=== PATIENT | male | born 1955 | race Caucasian/White ===

== ENCOUNTER 2017-04-15 07:31 | Emergency (ER) | payer OTHER ==
[~2017-04-15] VITALS: Ht 170.2 cm; Wt 59.0 kg
[~2017-04-15 07:31] MED LIST: AMOX1TAB12 PO; COZAAR50 MG; DICLOFENAC SODI50 MG PO; LIPITOR20 MG; MUPIROCIN15 GM TOP; ORPH100T PO; [UNRECOGNIZED DRUG - OTHER]; [UNRECOGNIZED DRUG - OTHER]
== END 2017-04-15 08:42 | disposition home or self-care (01) ==
LOC: ER 07:31
DX: Z48.02 Encounter for removal of sutures (principal)

== ENCOUNTER 2017-05-16 07:14 | Outpatient (CLI) | payer OTHER | END 2017-05-16 07:18 | disposition home or self-care (01) | LOC: LAB 07:14 | DX: D49.2 Neoplasm of unspecified behavior of bone, soft tissue, and skin (principal) ==

== ENCOUNTER 2017-05-16 07:49 | Outpatient (CLI) | payer OTHER | END 2017-05-16 07:52 | disposition home or self-care (01) | LOC: RAD 07:49 | DX: M19.071 Primary osteoarthritis, right ankle and foot (principal); M19.072 Primary osteoarthritis, left ankle and foot ==

== ENCOUNTER → 2017-05-29 07:55 | Outpatient (CLI) | payer OTHER | END | disposition home or self-care (01) | LOC: LAB 07:55 | DX: B20 Human immunodeficiency virus [HIV] disease (principal) ==

== ENCOUNTER 2017-12-05 06:53 | Outpatient (CLI) | payer OTHER | END 2017-12-05 07:09 | disposition home or self-care (01) | LOC: LAB 06:53 | DX: B20 Human immunodeficiency virus [HIV] disease (principal); Z12.5 Encounter for screening for malignant neoplasm of prostate; R31.29 Other microscopic hematuria ==

== ENCOUNTER 2017-12-29 19:37 | Emergency (ER) | payer OTHER ==
[~2017-12-29] VITALS: Ht 170.2 cm; Wt 59.0 kg
[2017-12-29] MEDS ORDERED: ASPIR-TRIN325 MG (19:43)
== END 2017-12-29 22:29 | disposition designated cancer center or children's hospital (05) ==
LOC: ER 19:37
DX: S52.591A Other fractures of lower end of right radius, initial encounter for closed fracture (principal); V49.9XXA Car occupant (driver) (passenger) injured in unspecified traffic accident, initial encounter; Y93.89 Activity, other specified; Y92.488 Other paved roadways as the place of occurrence of the external cause; Y99.8 Other external cause status

== ENCOUNTER 2018-01-12 07:25 | Outpatient (CLI) | payer OTHER ==
[~2018-01-12 07:25] MED LIST changes: +ASPIR-TRIN325 MG
== END 2018-01-12 07:35 | disposition home or self-care (01) ==
LOC: LAB 07:25
DX: B20 Human immunodeficiency virus [HIV] disease (principal); E78.4 Other hyperlipidemia

== ENCOUNTER → 2018-01-19 07:06 | Outpatient (CLI) | payer OTHER | END | disposition home or self-care (01) | LOC: LAB 07:06 | DX: R97.20 Elevated prostate specific antigen [PSA] (principal); N40.1 Benign prostatic hyperplasia with lower urinary tract symptoms ==

== ENCOUNTER 2018-05-14 07:36 | Outpatient (CLI) | payer OTHER | END 2018-05-14 07:40 | disposition home or self-care (01) | LOC: LAB 07:36 | DX: Z00.00 Encounter for general adult medical examination without abnormal findings (principal) ==

== ENCOUNTER 2018-11-12 07:19 | Outpatient (CLI) | payer OTHER | END 2018-11-12 07:29 | disposition home or self-care (01) | LOC: LAB 07:19 | DX: B20 Human immunodeficiency virus [HIV] disease (principal); E78.49 Other hyperlipidemia; Z11.4 Encounter for screening for human immunodeficiency virus [HIV] ==

== ENCOUNTER 2019-01-15 07:06 | Outpatient (CLI) | payer OTHER | END 2019-01-15 07:18 | disposition home or self-care (01) | LOC: LAB 07:06 | DX: B20 Human immunodeficiency virus [HIV] disease (principal) ==

== ENCOUNTER 2019-05-02 06:48 | Outpatient (CLI) | payer OTHER | END 2019-05-02 06:55 | disposition home or self-care (01) | LOC: LAB 06:48 | DX: R97.20 Elevated prostate specific antigen [PSA] (principal); N40.1 Benign prostatic hyperplasia with lower urinary tract symptoms ==

== ENCOUNTER → 2019-05-13 06:57 | Outpatient (CLI) | payer OTHER | END | disposition home or self-care (01) | LOC: LAB 06:57 | DX: Z00.00 Encounter for general adult medical examination without abnormal findings (principal) ==

== ENCOUNTER 2019-08-03 08:06 | Outpatient (CLI) | payer OTHER | END 2019-08-03 08:13 | disposition home or self-care (01) | LOC: LAB 08:06 | DX: R97.20 Elevated prostate specific antigen [PSA] (principal) ==

== ENCOUNTER 2020-09-07 07:43 | Outpatient (CLI) | payer OTHER | END 2020-09-07 07:46 | disposition home or self-care (01) | LOC: SONOGRAMA 07:43 → MAMO-SONO 08:00 | PROVIDERS: ATTEND Internal Medicine Infectious Disease | DX: K76.0 Fatty (change of) liver, not elsewhere classified (principal) ==

== ENCOUNTER → 2020-12-22 08:40 | Outpatient (CLI) | payer OTHER | END | disposition home or self-care (01) | LOC: LAB 08:40 | PROVIDERS: ATTEND Urology | DX: N40.1 Benign prostatic hyperplasia with lower urinary tract symptoms (principal); R97.20 Elevated prostate specific antigen [PSA]; N39.0 Urinary tract infection, site not specified; D51.0 Vitamin B12 deficiency anemia due to intrinsic factor deficiency; I25.10 Atherosclerotic heart disease of native coronary artery without angina pectoris; R78.89 Finding of other specified substances, not normally found in blood ==

== ENCOUNTER → 2021-01-26 07:30 | Outpatient (CLI) | payer OTHER | END | disposition home or self-care (01) | LOC: LAB 07:30 | PROVIDERS: ATTEND Internal Medicine Infectious Disease | DX: C08.9 Malignant neoplasm of major salivary gland, unspecified (principal); C04.9 Malignant neoplasm of floor of mouth, unspecified ==

== ENCOUNTER 2021-05-15 08:31 | Outpatient (CLI) | payer OTHER | END 2021-05-15 08:35 | disposition home or self-care (01) | LOC: RAD 08:31 | PROVIDERS: ATTEND Urology | DX: I10 Essential (primary) hypertension (principal); Z01.811 Encounter for preprocedural respiratory examination ==

== ENCOUNTER 2021-05-18 07:42 | Outpatient (CLI) | payer OTHER | END 2021-05-18 07:51 | disposition home or self-care (01) | LOC: LAB 07:42 | PROVIDERS: ATTEND Urology | DX: C61 Malignant neoplasm of prostate (principal); Z01.818 Encounter for other preprocedural examination; R97.20 Elevated prostate specific antigen [PSA]; D51.0 Vitamin B12 deficiency anemia due to intrinsic factor deficiency; E78.9 Disorder of lipoprotein metabolism, unspecified ==

== ENCOUNTER 2021-07-05 13:25 | Outpatient (CLI) | payer OTHER | END 2021-07-05 13:26 | disposition home or self-care (01) | LOC: LAB 13:25 | PROVIDERS: ATTEND Specialist | DX: L02.416 Cutaneous abscess of left lower limb (principal) ==

== ENCOUNTER 2021-07-20 07:00 | Outpatient (CLI) | payer OTHER | END 2021-07-20 07:08 | disposition home or self-care (01) | LOC: LAB 07:00 | DX: B20 Human immunodeficiency virus [HIV] disease (principal) ==

== ENCOUNTER 2021-07-22 07:31 | Outpatient (CLI) | payer OTHER | END 2021-07-22 07:43 | disposition home or self-care (01) | LOC: LAB 07:31 | DX: E11.9 Type 2 diabetes mellitus without complications (principal); E78.5 Hyperlipidemia, unspecified ==

== ENCOUNTER 2021-08-04 08:03 | Outpatient (CLI) | payer OTHER | END 2021-08-04 08:04 | disposition home or self-care (01) | LOC: LAB 08:03 | PROVIDERS: ATTEND Internal Medicine Infectious Disease | DX: C61 Malignant neoplasm of prostate (principal) ==

== ENCOUNTER 2021-08-09 07:42 | Emergency (ER) | payer OTHER ==
[~2021-08-09] VITALS: Ht 170.2 cm; Wt 58.5 kg
== END 2021-08-09 09:22 | disposition home or self-care (01) ==
LOC: ER 07:42
DX: T24.10 Burn of first degree of unspecified site of lower limb, except ankle and foot (principal); X08.8XXS Exposure to other specified smoke, fire and flames, sequela

== ENCOUNTER 2021-08-09 10:26 | Outpatient (CLI) | payer OTHER | END 2021-08-09 11:00 | disposition home or self-care (01) | LOC: WOUND CARE 10:26 → WOUND MED 10:26 → WOUND CARE 11:30 | PROVIDERS: ATTEND Specialist | DX: T24.001D Burn of unspecified degree of unspecified site of right lower limb, except ankle and foot, subsequent encounter (principal) | CPT/HCPCS: 11042; A4930; A6219; A6223; A6251 ==

== ENCOUNTER 2021-10-12 07:05 | Outpatient (CLI) | payer OTHER | END 2021-10-12 07:12 | disposition home or self-care (01) | LOC: LAB 07:05 | PROVIDERS: ATTEND Urology | DX: R97.20 Elevated prostate specific antigen [PSA] (principal) ==

== ENCOUNTER 2021-10-19 07:25 | Outpatient (CLI) | payer OTHER | END 2021-10-19 07:40 | disposition home or self-care (01) | LOC: LAB 07:25 | DX: Z00.00 Encounter for general adult medical examination without abnormal findings (principal); Z21 Asymptomatic human immunodeficiency virus [HIV] infection status; I10 Essential (primary) hypertension; E78.5 Hyperlipidemia, unspecified; E03.8 Other specified hypothyroidism; N40.0 Benign prostatic hyperplasia without lower urinary tract symptoms; E11.65 Type 2 diabetes mellitus with hyperglycemia; E55.9 Vitamin D deficiency, unspecified ==

== ENCOUNTER → 2021-10-29 | Outpatient (CLI) | payer OTHER | END | disposition home or self-care (01) | LOC: SONOGRAMA 07:15 | PROVIDERS: ATTEND Urology | DX: R97.20 Elevated prostate specific antigen [PSA] (principal) ==

== ENCOUNTER → 2022-01-17 06:44 | Outpatient (CLI) | payer OTHER | END | disposition home or self-care (01) | LOC: LAB 06:44 | PROVIDERS: ATTEND Internal Medicine Infectious Disease | DX: E11.9 Type 2 diabetes mellitus without complications (principal); I10 Essential (primary) hypertension; E78.5 Hyperlipidemia, unspecified; D64.9 Anemia, unspecified ==

== ENCOUNTER 2022-07-12 06:57 | Outpatient (CLI) | payer OTHER | END 2022-07-12 07:02 | disposition home or self-care (01) | LOC: LAB 06:57 | PROVIDERS: ATTEND Internal Medicine Infectious Disease | DX: B20 Human immunodeficiency virus [HIV] disease (principal); E78.5 Hyperlipidemia, unspecified ==

== ENCOUNTER 2022-10-25 07:23 | Outpatient (CLI) | payer OTHER | END 2022-10-25 07:26 | disposition home or self-care (01) | LOC: LAB 07:23 | PROVIDERS: ATTEND Urology | DX: C61 Malignant neoplasm of prostate (principal) ==

== ENCOUNTER → 2022-11-29 07:08 | Outpatient (CLI) | payer OTHER | END | disposition home or self-care (01) | LOC: LAB 07:08 | PROVIDERS: ATTEND Urology | DX: C61 Malignant neoplasm of prostate (principal); R31.1 Benign essential microscopic hematuria ==

== ENCOUNTER 2023-01-01 07:13 | Emergency (ER) | payer OTHER ==
[~2023-01-01] VITALS: Ht 170.2 cm; Wt 58.1 kg
[2023-01-01] MEDS ORDERED: FENOFIBRATE150 MG (07:44)
[2023-01-01] MEDS ORDERED: NORVIR100 M2 PO (07:45)
[2023-01-01] MEDS ORDERED: LOSARTAN POTASS50 MG PO (07:45)
[2023-01-01] MEDS ORDERED: ETRAVIRINE PO (07:46)
[2023-01-01] MEDS ORDERED: ATORVASTATIN CA40 MG PO (07:46)
[2023-01-01] MEDS ORDERED: LAMIVUDINE-ZID1 EACH PO (07:48)
[2023-01-01] MEDS ORDERED: TAMS0.4C PO (07:48)
== END 2023-01-01 11:24 | disposition home or self-care (01) ==
LOC: ER 07:13
DX: S00.93XA Contusion of unspecified part of head, initial encounter (principal); W18.30XA Fall on same level, unspecified, initial encounter; Y93.89 Activity, other specified; Y92.488 Other paved roadways as the place of occurrence of the external cause; Y99.9 Unspecified external cause status; R42 Dizziness and giddiness; I10 Essential (primary) hypertension; B20 Human immunodeficiency virus [HIV] disease

== ENCOUNTER 2023-01-03 13:19 | Outpatient (CLI) | payer OTHER ==
[~2023-01-03 13:19] MED LIST changes: +ATORVASTATIN CA40 MG PO; +ETRAVIRINE PO; +FENOFIBRATE150 MG; +LAMIVUDINE-ZID1 EACH PO; +LOSARTAN POTASS50 MG PO; +NORVIR100 M2 PO; +TAMS0.4C PO
== END 2023-01-03 13:20 | disposition home or self-care (01) ==
LOC: LAB 13:19
PROVIDERS: ATTEND Urology
DX: R97.20 Elevated prostate specific antigen [PSA] (principal)

== ENCOUNTER 2023-01-11 07:14 | Outpatient (CLI) | payer OTHER | END 2023-01-11 07:22 | disposition home or self-care (01) | LOC: SONOGRAMA 07:14 | PROVIDERS: ATTEND Urology | DX: C61 Malignant neoplasm of prostate (principal); D29.1 Benign neoplasm of prostate ==

== ENCOUNTER → 2023-01-24 06:45 | Outpatient (CLI) | payer OTHER ==
[2023-01-24 08:12] LABS: HEMATOCRIT 40.4 % (39.0-48.0); HEMOGLOBIN 14.2 g/dL (13-16.00); MEAN CELL VOLUME 109.9 fL (80.0-100.00); MEAN CORPUSCULAR HEMOGLOBIN 38.7 pg (27.00-32.0); MEAN CORPUSCULAR HGB CONC 35.2 g/dl (32.0-36.0); PLATELET COUNT 220 K/uL (150-450); RED BLOOD COUNT 3.67 M/uL (4.00-6.00); RED CELL DISTRIBUTION WIDTH 13.2 % (11.5-14.5)
[2023-01-24 08:13] LABS: PH,URINE 5.5 (5.0-8.0); URINE APPEARANCE Clear; URINE BILIRRUBIN Negative (NEGATIVE); URINE BLOOD Negative; URINE COLOR Yellow; URINE GLUCOSE Negative (NEGATIVE); URINE LEUKOCYTE Negative; URINE NITRATE Negative; URINE PROTEIN Negative (NEGATIVE); URINE UROBILINOGEN 0.2 E.U./dl
[2023-01-24 08:18] LABS: URINE RBC 2.2 uL (0.0-20.8)
[2023-01-24 08:21] LABS: URINE BACTERIA 3.7 uL (0.0-1933); URINE EPITHELIAL CELLS 0.6 uL (0.0-38.8); URINE WBC 0.9 uL (0.0-23.2)
[2023-01-24 08:43] LABS: ALBUMIN 3.8 gm/dL (3.4-5.0); BILIRUBIN TOTAL 0.55 mg/dL (0.3-1.2); CALCIUM 9.2 mg/dL (8.5-10.1); CHOL HDL RATIO 3.9 (0-5.0); CREATININE SERUM 0.8 mg/dL (0.70-1.30); GFR 96.72; POTASSIUM 4.09 mEq/L (3.5-5.1); TOTAL PROTEIN 6.8 gm/dL (6.4-8.2)
== END | disposition home or self-care (01) ==
LOC: LAB 06:45
PROVIDERS: ATTEND Internal Medicine Infectious Disease
DX: E11.9 Type 2 diabetes mellitus without complications (principal); E78.00 Pure hypercholesterolemia, unspecified; R30.0 Dysuria; D50.9 Iron deficiency anemia, unspecified; B20 Human immunodeficiency virus [HIV] disease

== ENCOUNTER 2023-07-25 07:17 | Outpatient (CLI) | payer OTHER ==
[2023-07-25 09:35] LABS: PH,URINE 5.5 (5.0-8.0); URINE APPEARANCE Cloudy; URINE BILIRRUBIN Negative (NEGATIVE); URINE BLOOD Negative; URINE COLOR Yellow; URINE GLUCOSE Negative (NEGATIVE); URINE LEUKOCYTE Moderate; URINE NITRATE Negative; URINE PROTEIN Trace (NEGATIVE); URINE UROBILINOGEN 0.2 E.U./dl
[2023-07-25 09:41] LABS: URINE BACTERIA 81.8 uL (0.0-1933); URINE EPITHELIAL CELLS 11.4 uL (0.0-38.8); URINE RBC 10.3 uL (0.0-20.8); URINE WBC 91.9 uL (0.0-23.2)
== END 2023-07-25 07:19 | disposition home or self-care (01) ==
LOC: LAB 07:17
PROVIDERS: ATTEND Urology
DX: R31.1 Benign essential microscopic hematuria (principal); N30.00 Acute cystitis without hematuria

== ENCOUNTER 2023-07-25 08:12 | Outpatient (CLI) | payer OTHER | END 2023-07-25 08:20 | disposition home or self-care (01) | LOC: SONOGRAMA 08:12 | PROVIDERS: ATTEND Urology | DX: K31.1 Adult hypertrophic pyloric stenosis (principal) ==

== ENCOUNTER 2023-08-02 07:12 | Outpatient (CLI) | payer OTHER ==
[2023-08-02 07:48] LABS: URINE APPEARANCE Clear; URINE BILIRRUBIN Negative (NEGATIVE); URINE BLOOD Negative; URINE COLOR Yellow; URINE GLUCOSE Negative (NEGATIVE); URINE LEUKOCYTE Small; URINE NITRATE Negative; URINE PROTEIN Negative (NEGATIVE); URINE UROBILINOGEN 0.2 E.U./dl
[2023-08-02 07:52] LABS: URINE BACTERIA 57.8 uL (0.0-1933); URINE EPITHELIAL CELLS 2.9 uL (0.0-38.8); URINE WBC 29.6 uL (0.0-23.2)
[2023-08-02 08:02] LABS: HEMOGLOBIN 11.9 g/dL (13-16.00); MEAN CELL VOLUME 110.6 fL (80.0-100.00); MEAN CORPUSCULAR HEMOGLOBIN 37.7 pg (27.00-32.0); MEAN CORPUSCULAR HGB CONC 34.1 g/dl (32.0-36.0); PLATELET COUNT 240 K/uL (150-450); RED BLOOD COUNT 3.16 M/uL (4.00-6.00); RED CELL DISTRIBUTION WIDTH 15.1 % (11.5-14.5)
[2023-08-02 08:44] LABS: ALBUMIN 3.9 gm/dL (3.4-5.0); BILIRUBIN TOTAL 0.65 mg/dL (0.3-1.2); CALCIUM 9.5 mg/dL (8.5-10.1); CHOL HDL RATIO 2.4 (0-5.0); CREATININE SERUM 0.96 mg/dL (0.70-1.30); GFR 78.13; GLOBULINA 3.3 G/DL (2.4-3.5); POTASSIUM 3.93 mEq/L (3.5-5.1); TOTAL PROTEIN 7.2 gm/dL (6.4-8.2)
== END 2023-08-02 07:21 | disposition home or self-care (01) ==
LOC: LAB 07:12
PROVIDERS: ATTEND Internal Medicine Infectious Disease
DX: E78.5 Hyperlipidemia, unspecified (principal); B20 Human immunodeficiency virus [HIV] disease; I10 Essential (primary) hypertension

== ENCOUNTER 2023-11-07 06:43 | Outpatient (CLI) | payer OTHER ==
[2023-11-07 07:37] LABS: PH,URINE 5.5 (5.0-8.0); URINE APPEARANCE Clear; URINE BILIRRUBIN Negative (NEGATIVE); URINE BLOOD Negative; URINE COLOR Yellow; URINE GLUCOSE Negative (NEGATIVE); URINE LEUKOCYTE Negative; URINE NITRATE Negative; URINE PROTEIN Negative (NEGATIVE); URINE UROBILINOGEN 0.2 E.U./dl
[2023-11-07 07:40] LABS: URINE BACTERIA 35.2 uL (0.0-1933); URINE EPITHELIAL CELLS 1.5 uL (0.0-38.8)
[2023-11-07 07:45] LABS: URINE RBC 0.4 uL (0.0-20.8); URINE WBC 0.9 uL (0.0-23.2)
== END 2023-11-07 06:44 | disposition home or self-care (01) ==
LOC: LAB 06:43
PROVIDERS: ATTEND Urology
DX: C61 Malignant neoplasm of prostate (principal); N30.00 Acute cystitis without hematuria

== ENCOUNTER 2023-11-28 11:34 | Outpatient (CLI) | payer OTHER ==
[2023-11-28 11:53] LABS: HEMATOCRIT 30.4 % (39.0-48.0); HEMOGLOBIN 10.6 g/dL (13-16.00); MEAN CORPUSCULAR HEMOGLOBIN 38.9 pg (27.00-32.0); MEAN CORPUSCULAR HGB CONC 34.8 g/dl (32.0-36.0); PLATELET COUNT 297 K/uL (150-450); RED BLOOD COUNT 2.71 M/uL (4.00-6.00); RED CELL DISTRIBUTION WIDTH 13.5 % (11.5-14.5)
== END 2023-11-28 11:41 | disposition home or self-care (01) ==
LOC: LAB 11:34
DX: B20 Human immunodeficiency virus [HIV] disease (principal)

== ENCOUNTER 2023-12-12 10:50 | Outpatient (CLI) | payer OTHER ==
[2023-12-12 13:41] LABS: FOLIC ACID 4.51 ng/ml (4.78-20)
[2023-12-12 15:18] LABS: ob POSITIVE (NEGATIVE)
== END 2023-12-12 10:58 | disposition home or self-care (01) ==
LOC: LAB 10:50
DX: B20 Human immunodeficiency virus [HIV] disease (principal)

== ENCOUNTER 2023-12-22 07:08 | Outpatient (CLI) | payer OTHER ==
[2023-12-22 08:06] LABS: HEMATOCRIT 33.5 % (39.0-48.0); HEMOGLOBIN 11.9 g/dL (13-16.00); MEAN CELL VOLUME 112.3 fL (80.0-100.00); MEAN CORPUSCULAR HEMOGLOBIN 39.9 pg (27.00-32.0); MEAN CORPUSCULAR HGB CONC 35.5 g/dl (32.0-36.0); PLATELET COUNT 249 K/uL (150-450); RED BLOOD COUNT 2.99 M/uL (4.00-6.00); RED CELL DISTRIBUTION WIDTH 13.6 % (11.5-14.5)
== END 2023-12-22 07:12 | disposition home or self-care (01) ==
LOC: LAB 07:08
PROVIDERS: ATTEND Internal Medicine Infectious Disease
DX: K62.5 Hemorrhage of anus and rectum (principal)

== ENCOUNTER 2024-01-12 07:13 | Outpatient (CLI) | payer OTHER | END 2024-01-12 07:14 | disposition home or self-care (01) | LOC: NUCLEAR 07:13 | PROVIDERS: ATTEND Internal Medicine | DX: I20.9 Angina pectoris, unspecified (principal) | CPT/HCPCS: 78452; 93017; A9500 ==

== ENCOUNTER 2024-01-24 15:21 | Inpatient (IN) | payer OTHER ==
[~2024-01-24] VITALS: Ht 170.2 cm; Wt 55.3 kg
--- NOTE | 2024-01-24 15:28 | NUR ---
PACIENTE ALERTA Y ORIENTADO X 3. REFIERE OPHELIA SEMANA CON MOLESTIA EN EL PECHO Y MOLESTIA PARA REAPIRAR QUE REFIERE ES A CAUSA DE CONGESTION, TOS, DOLOR DE JJ Y CORPORAL, FALTA DE APETITO Y CANSANCIO AL CAMINAR.
[2024-01-24] MEDS ORDERED: ADCIRCA20 MG (15:32)
[2024-01-24] MEDS ORDERED: METHYLPREDNISOLONE SOD SUCC 125 MG VIAL IV ONE (16:30)
[2024-01-24] MEDS ORDERED: GUAIFENESIN/DEXTROMETHORPHAN 10ML BLIST.PACK PO ONE (16:30)
[2024-01-24] MEDS ORDERED: CEFTRIAXONE SODIUM 1,000 MG VIAL IV ONE (16:30)
--- NOTE | 2024-01-24 16:39 | NUR ---
SE EDUCA A PTE SOBRE TX MEDICO, SE JOE MUESTRAS DE LABORATORIO UTILIZANDO MEDIDAS ASEPTICAS. SE ADMINISTRAN MEDICAMENTOS LOS CUALES TOLERA. SE ADMINISTRAN MEDICAMENTOS LOS CUALES [place]A. SE NOTIFICA ESTUDIO DE CTPENDIENTE A REALIZAR. PTE MANEJADO POR MRS. HERMOSILLO.
[2024-01-24 17:24] LABS: HEMATOCRIT 35.6 % (39.0-48.0); HEMOGLOBIN 12.2 g/dL (13-16.00); MEAN CELL VOLUME 111.3 fL (80.0-100.00); MEAN CORPUSCULAR HEMOGLOBIN 38.2 pg (27.00-32.0); MEAN CORPUSCULAR HGB CONC 34.3 g/dl (32.0-36.0); PLATELET COUNT 240 K/uL (150-450); RED CELL DISTRIBUTION WIDTH 12.5 % (11.5-14.5)
[2024-01-24 17:46] LABS: ALBUMIN 3.3 gm/dL (3.4-5.0); BILIRUBIN TOTAL 0.52 mg/dL (0.3-1.2); CALCIUM 8.8 mg/dL (8.5-10.1); CREATININE SERUM 1.29 mg/dL (0.70-1.30); GFR 55.55; POTASSIUM 3.78 mEq/L (3.5-5.1); TOTAL PROTEIN 7.3 gm/dL (6.4-8.2)
[2024-01-24] MEDS ORDERED: IPRATROPIUM BROMIDE 0.5 MG/2.5 ML AMPUL.NEB IH SCH (20:12)
[2024-01-24] MEDS ORDERED: PIPERACILLIN/TAZOBACTAM SODIUM 3.375 GM in DEXTROSE 5 % IN WATER 100 ML IV SCH (20:14)
[2024-01-24] MEDS ORDERED: ACETAMINOPHEN 500 MG GEL..CAP PO PRN (20:15)
[2024-01-24] MEDS ORDERED: 0.9 % SODIUM CHLORIDE 1,000 ML IV SCH (20:15)
[2024-01-24 22:35] LABS: ABG PH 7.456 (7.35-7.45); ABG pCO2 22.9 mmHg (35-45); BASE EXCESS -5.9 mmol/l; BICARBONATE 15.7 mmol/l (23-25); Tco2 16.4 mmol/l; o2 21 %; puncture site BRADIAL RIGHT
[2024-01-24 22:36] LABS: allen test SATISFACTORY
[2024-01-24 23:00] VITALS: BP 116/65; O2SAT 97
[2024-01-25 00:58] LABS: INR 1.24; PROTHROMBIN TIME 13.3 SECONDS (9.0-11.5)
[2024-01-25 02:03] VITALS: BP 157/89; O2SAT 96
[2024-01-25 02:05] LABS: PH,URINE 5.5 (5.0-8.0); URINE APPEARANCE Clear; URINE BILIRRUBIN Negative (NEGATIVE); URINE BLOOD Small; URINE COLOR Yellow; URINE GLUCOSE Negative (NEGATIVE); URINE KETONE Negative (NEGATIVE); URINE LEUKOCYTE Negative; URINE NITRATE Negative; URINE PROTEIN Trace (NEGATIVE); URINE UROBILINOGEN 0.2 E.U./dl
[2024-01-25 02:19] LABS: URINE BACTERIA 1.2 uL (0.0-1933); URINE CAST 0.61 uL (0.0-1.40); URINE WBC 1.5 uL (0.0-23.2)
[2024-01-25 08:20] VITALS: BP 119/67; O2SAT 97
[2024-01-25] MEDS ORDERED: TAMSULOSIN HCL 0.4 MG CAP PO SCH (09:00)
[2024-01-25] MEDS ORDERED: LOSARTAN POTASSIUM 50 MG TABLET PO SCH (09:00)
[2024-01-25] MEDS ORDERED: ATORVASTATIN CALCIUM 40 MG TABLET PO SCH (09:00)
[2024-01-25] MEDS ORDERED: ENOXAPARIN SODIUM 40 MG/0.4 ML SYRINGE SUBCUTANEO SCH (09:00)
[2024-01-25] MEDS ORDERED: FAMOTIDINE/PF 20 MG in 0.9 % SODIUM CHLORIDE 8 ML IV PUSH SCH (09:00)
[2024-01-25 16:00] VITALS: BP 142/73; O2SAT 100
[2024-01-25] MEDS ORDERED: AZITHROMYCIN 500 MG in 0.9 % SODIUM CHLORIDE 250 ML IV SCH (17:00)
[2024-01-25] MEDS ORDERED: ALBUTEROL SULFATE 3 ML/2.5 MG AMPUL.NEB IH SCH (21:00)
[2024-01-26 01:24] VITALS: BP 126/72; O2SAT 100
[2024-01-26 06:26] LABS: HEMATOCRIT 38.2 % (39.0-48.0); HEMOGLOBIN 13.2 g/dL (13-16.00); MEAN CELL VOLUME 109.9 fL (80.0-100.00); MEAN CORPUSCULAR HGB CONC 34.6 g/dl (32.0-36.0); PLATELET COUNT 139 K/uL (150-450); RED BLOOD COUNT 3.47 M/uL (4.00-6.00); RED CELL DISTRIBUTION WIDTH 12.9 % (11.5-14.5)
[2024-01-26 06:48] LABS: URINE APPEARANCE Clear; URINE BILIRRUBIN Negative (NEGATIVE); URINE BLOOD Large; URINE COLOR Yellow; URINE GLUCOSE Negative (NEGATIVE); URINE KETONE Negative (NEGATIVE); URINE LEUKOCYTE Negative; URINE NITRATE Negative; URINE UROBILINOGEN 0.2 E.U./dl
[2024-01-26 06:50] LABS: URINE EPITHELIAL CELLS 4.4 uL (0.0-38.8); URINE WBC 2.9 uL (0.0-23.2)
[2024-01-26 06:55] LABS: URINE BACTERIA 2.5 uL (0.0-1933); URINE CAST 0.15 uL (0.0-1.40); URINE PROTEIN 100 (NEGATIVE)
[2024-01-26 07:05] LABS: ALBUMIN 3.2 gm/dL (3.4-5.0); BILIRUBIN TOTAL 0.47 mg/dL (0.3-1.2); CALCIUM 8.5 mg/dL (8.5-10.1); CREATININE SERUM 1.17 mg/dL (0.70-1.30); GFR 62.18; GLOBULINA 3.5 G/DL (2.4-3.5); POTASSIUM 4.34 mEq/L (3.5-5.1); TOTAL PROTEIN 6.7 gm/dL (6.4-8.2)
[2024-01-26 07:08] LABS: MAGNESIUM 2.5 mg/dL (1.8-2.4); PHOSPHOROUS 3.9 mg/dL (2.5-4.9)
[2024-01-26 07:10] LABS: C-REACTIVE PROTEIN 1.4 MG/DL (0.00-0.29)
[2024-01-26 08:00] VITALS: BP 142/80; O2SAT 97
[2024-01-26 09:16] LABS: MYCOPLASMA PNEUMONIAE IGM NON REACTIVE (NO REACTIVE)
[2024-01-26 16:00] VITALS: BP 132/78; O2SAT 99
[2024-01-27] VITALS: BP 108/64; O2SAT 100
[2024-01-27 08:30] VITALS: BP 95/63; O2SAT 98
[2024-01-27 09:35] LABS: ALBUMIN 2.8 gm/dL (3.4-5.0); BILIRUBIN TOTAL 0.4 mg/dL (0.3-1.2); CALCIUM 8.6 mg/dL (8.5-10.1); GFR 74.53; GLOBULINA 3.4 G/DL (2.4-3.5); MAGNESIUM 2.3 mg/dL (1.8-2.4); PHOSPHOROUS 2.7 mg/dL (2.5-4.9); POTASSIUM 3.58 mEq/L (3.5-5.1); TOTAL PROTEIN 6.2 gm/dL (6.4-8.2)
[2024-01-27] MEDS ORDERED: GUAIFENESIN/DEXTROMETHORPHAN 5ML BLIST.PACK PO SCH (13:00)
[2024-01-27 16:54] VITALS: BP 106/70; O2SAT 98
[2024-01-28 00:57] VITALS: BP 108/57; O2SAT 96
[2024-01-28 07:59] LABS: HEMATOCRIT 34.9 % (39.0-48.0); MEAN CELL VOLUME 111.3 fL (80.0-100.00); MEAN CORPUSCULAR HEMOGLOBIN 38.3 pg (27.00-32.0); MEAN CORPUSCULAR HGB CONC 34.4 g/dl (32.0-36.0); RED BLOOD COUNT 3.13 M/uL (4.00-6.00)
[2024-01-28 08:21] LABS: ALBUMIN 2.5 gm/dL (3.4-5.0); BILIRUBIN TOTAL 0.46 mg/dL (0.3-1.2); CALCIUM 8.1 mg/dL (8.5-10.1); CREATININE SERUM 0.91 mg/dL (0.70-1.30); GFR 83.1; GLOBULINA 2.8 G/DL (2.4-3.5); POTASSIUM 4.08 mEq/L (3.5-5.1); TOTAL PROTEIN 5.3 gm/dL (6.4-8.2)
[2024-01-28 09:19] VITALS: BP 108/64; O2SAT 97
[2024-01-28 09:26] LABS: PLATELET COUNT 77 K/uL (150-450)
[2024-01-28 15:20] VITALS: BP 102/61; O2SAT 96
[2024-01-29] VITALS: BP 112/56; O2SAT 97
[2024-01-29 06:41] LABS: HEMATOCRIT 31.3 % (39.0-48.0); HEMOGLOBIN 11.2 g/dL (13-16.00); MEAN CELL VOLUME 108.8 fL (80.0-100.00); MEAN CORPUSCULAR HEMOGLOBIN 38.9 pg (27.00-32.0); MEAN CORPUSCULAR HGB CONC 35.7 g/dl (32.0-36.0); RED BLOOD COUNT 2.87 M/uL (4.00-6.00); RED CELL DISTRIBUTION WIDTH 12.6 % (11.5-14.5)
[2024-01-29 07:05] LABS: ALBUMIN 2.3 gm/dL (3.4-5.0); BILIRUBIN TOTAL 0.41 mg/dL (0.3-1.2); CALCIUM 8.4 mg/dL (8.5-10.1); CREATININE SERUM 0.71 mg/dL (0.70-1.30); GFR 110.66; GLOBULINA 3.1 G/DL (2.4-3.5); POTASSIUM 3.71 mEq/L (3.5-5.1); TOTAL PROTEIN 5.4 gm/dL (6.4-8.2)
[2024-01-29 07:35] LABS: PLATELET COUNT 70 K/uL (150-450)
[2024-01-29 09:41] VITALS: BP 133/74; O2SAT 96
[2024-01-29 12:01] LABS: INR 1.14; PARTIAL THROMBOPLASTIN TIME 34.9 SECONDS (22.0-34.0); PROTHROMBIN TIME 11.7 SECONDS (9.0-11.5)
[2024-01-29 15:45] VITALS: BP 117/60; O2SAT 98
[2024-01-29] MEDS ORDERED: PIPERACILLIN/TAZOBACTAM SODIUM 4.5 GM in 0.9 % SODIUM CHLORIDE 100 ML IV SCH (18:00)
[2024-01-30 00:32] VITALS: BP 130/60; O2SAT 95
[2024-01-30 06:24] LABS: HEMATOCRIT 30.3 % (39.0-48.0); HEMOGLOBIN 10.8 g/dL (13-16.00); MEAN CELL VOLUME 107.9 fL (80.0-100.00); MEAN CORPUSCULAR HEMOGLOBIN 38.4 pg (27.00-32.0); MEAN CORPUSCULAR HGB CONC 35.5 g/dl (32.0-36.0); RED BLOOD COUNT 2.81 M/uL (4.00-6.00); RED CELL DISTRIBUTION WIDTH 12.7 % (11.5-14.5)
[2024-01-30 06:37] LABS: PLT IN CITRATE 90 K/uL (150-450)
[2024-01-30 06:51] LABS: ALBUMIN 2.3 gm/dL (3.4-5.0); BILIRUBIN TOTAL 0.59 mg/dL (0.3-1.2); CALCIUM 8.4 mg/dL (8.5-10.1); CREATININE SERUM 0.7 mg/dL (0.70-1.30); GFR 112.48; GLOBULINA 3.1 G/DL (2.4-3.5); POTASSIUM 3.6 mEq/L (3.5-5.1); TOTAL PROTEIN 5.4 gm/dL (6.4-8.2)
[2024-01-30 07:51] LABS: PLATELET COUNT 98 K/uL (150-450)
[2024-01-30 08:14] VITALS: BP 163/74; O2SAT 98
[2024-01-30 10:00] LABS: MANUAL PLATELET COUNT 354
[2024-01-30 10:47] LABS: PLATELET ESTIMATE DECREASED (NORMAL)
[2024-01-30 16:00] VITALS: BP 123/57; O2SAT 98
[2024-01-31 00:30] VITALS: BP 151/75; O2SAT 100
[2024-01-31 06:46] LABS: HEMATOCRIT 29.2 % (39.0-48.0); HEMOGLOBIN 10.4 g/dL (13-16.00); MEAN CELL VOLUME 108.6 fL (80.0-100.00); MEAN CORPUSCULAR HEMOGLOBIN 38.5 pg (27.00-32.0); MEAN CORPUSCULAR HGB CONC 35.5 g/dl (32.0-36.0); RED BLOOD COUNT 2.69 M/uL (4.00-6.00); RED CELL DISTRIBUTION WIDTH 12.8 % (11.5-14.5)
[2024-01-31 07:05] LABS: ALBUMIN 2.4 gm/dL (3.4-5.0); BILIRUBIN TOTAL 0.55 mg/dL (0.3-1.2); CALCIUM 8.4 mg/dL (8.5-10.1); CREATININE SERUM 0.62 mg/dL (0.70-1.30); GFR 129.39; GLOBULINA 3.1 G/DL (2.4-3.5); POTASSIUM 3.58 mEq/L (3.5-5.1); TOTAL PROTEIN 5.5 gm/dL (6.4-8.2)
[2024-01-31 08:11] LABS: PLATELET COUNT 130 K/uL (150-450)
[2024-01-31 09:09] VITALS: BP 170/80; O2SAT 98
== END 2024-01-31 12:54 | disposition home or self-care (01) | DRG 976 ==
LOC: ER 15:23 → SEC-K 21:18 → SURH 21:18 → MEDI 01-30 16:46 → SURH 01-30 18:46 → SURG 01-30 18:55
PROVIDERS: General Practice; Internal Medicine Hematology & Oncology; Internal Medicine Infectious Disease; ADMIT Internal Medicine; ATTEND Internal Medicine
PROC: BB24ZZZ Computerized Tomography (CT Scan) of Bilateral Lungs (ICD-10-PCS; principal; 2024-01-24)
PROC: 3E0F7GC Introduction of Other Therapeutic Substance into Respiratory Tract, Via Natural or Artificial Opening (ICD-10-PCS; 2024-01-25)
PROC: BW40ZZZ Ultrasonography of Abdomen (ICD-10-PCS; 2024-01-26)
DX: J18.1 Lobar pneumonia, unspecified organism (principal); B20 Human immunodeficiency virus [HIV] disease; D69.59 Other secondary thrombocytopenia; R74.01 Elevation of levels of liver transaminase levels; Z85.46 Personal history of malignant neoplasm of prostate; Z87.891 Personal history of nicotine dependence

== ENCOUNTER → 2024-02-06 06:44 | Outpatient (CLI) | payer OTHER ==
[~2024-02-06 06:44] MED LIST changes: +ADCIRCA20 MG
[2024-02-06 08:06] LABS: HEMATOCRIT 34.7 % (39.0-48.0); HEMOGLOBIN 11.8 g/dL (13-16.00); MEAN CELL VOLUME 112.3 fL (80.0-100.00); MEAN CORPUSCULAR HEMOGLOBIN 38.3 pg (27.00-32.0); MEAN CORPUSCULAR HGB CONC 34.1 g/dl (32.0-36.0); PLATELET COUNT 243 K/uL (150-450); RED BLOOD COUNT 3.09 M/uL (4.00-6.00); RED CELL DISTRIBUTION WIDTH 13.1 % (11.5-14.5)
[2024-02-06 08:08] LABS: URINE APPEARANCE Clear; URINE BILIRRUBIN Negative (NEGATIVE); URINE BLOOD Negative; URINE COLOR Yellow; URINE GLUCOSE Negative (NEGATIVE); URINE KETONE Negative (NEGATIVE); URINE LEUKOCYTE Negative; URINE NITRATE Negative; URINE PROTEIN Negative (NEGATIVE); URINE UROBILINOGEN 0.2 E.U./dl
[2024-02-06 08:11] LABS: URINE BACTERIA 7.5 uL (0.0-1933); URINE EPITHELIAL CELLS 3.9 uL (0.0-38.8); URINE RBC 3.2 uL (0.0-20.8)
[2024-02-06 08:31] LABS: INR 1.06; PARTIAL THROMBOPLASTIN TIME 25.9 SECONDS (22.0-34.0); PROTHROMBIN TIME 11.5 SECONDS (9.0-11.5)
[2024-02-06 08:45] LABS: ALBUMIN 3.2 gm/dL (3.4-5.0); BILIRUBIN TOTAL 0.47 mg/dL (0.3-1.2); CALCIUM 9.3 mg/dL (8.5-10.1); CHOL HDL RATIO 4.1 (0-5.0); CREATININE SERUM 0.69 mg/dL (0.70-1.30); GFR 114.37; GLOBULINA 3.8 G/DL (2.4-3.5); POTASSIUM 4.41 mEq/L (3.5-5.1)
[2024-02-09 10:47] LABS: hiv 1 < 20 (.)
== END | disposition home or self-care (01) ==
LOC: LAB 06:44
PROVIDERS: ATTEND Internal Medicine Infectious Disease
DX: D50.8 Other iron deficiency anemias (principal); R19.5 Other fecal abnormalities; B20 Human immunodeficiency virus [HIV] disease

== ENCOUNTER 2024-02-19 07:17 | Outpatient (CLI) | payer OTHER | END 2024-02-19 07:28 | disposition home or self-care (01) | LOC: LAB 07:17 | PROVIDERS: ATTEND Internal Medicine Infectious Disease | DX: B20 Human immunodeficiency virus [HIV] disease (principal); D64.9 Anemia, unspecified ==

== ENCOUNTER 2024-06-05 06:45 | Outpatient (CLI) | payer OTHER ==
[2024-06-05 07:26] LABS: HEMATOCRIT 37.5 % (39.0-48.0); HEMOGLOBIN 13.2 g/dL (13-16.00); MEAN CELL VOLUME 109.1 fL (80.0-100.00); MEAN CORPUSCULAR HEMOGLOBIN 38.3 pg (27.00-32.0); MEAN CORPUSCULAR HGB CONC 35.1 g/dl (32.0-36.0); PLATELET COUNT 304 K/uL (150-450); RED BLOOD COUNT 3.44 M/uL (4.00-6.00); RED CELL DISTRIBUTION WIDTH 14.2 % (11.5-14.5)
[2024-06-05 08:00] LABS: URINE BACTERIA 29.3 uL (0.0-1933); URINE RBC 2.3 uL (0.0-20.8)
[2024-06-05 08:12] LABS: PH,URINE 5.5 (5.0-8.0); URINE APPEARANCE Clear; URINE BILIRRUBIN Negative (NEGATIVE); URINE BLOOD Negative; URINE COLOR Yellow; URINE GLUCOSE Negative (NEGATIVE); URINE KETONE Negative (NEGATIVE); URINE LEUKOCYTE Negative; URINE NITRATE Negative; URINE PROTEIN Negative (NEGATIVE); URINE UROBILINOGEN 0.2 E.U./dl
[2024-06-05 08:13] LABS: URINE CAST 0.14 uL (0.0-1.40); URINE EPITHELIAL CELLS 0.7 uL (0.0-38.8); URINE WBC 0.9 uL (0.0-23.2)
[2024-06-05 08:16] LABS: ALBUMIN 3.7 gm/dL (3.4-5.0); ALKALINE PHOSPHATASE 78 U/L (50-136); ALT/SGPT 51 U/L (12-78); ANION GAP 7 (10.0-20.0); AST/SGOT 116 U/L (15-37); BILIRUBIN TOTAL 0.43 mg/dL (0.3-1.2); BLOOD UREA NITROGEN 15 mg/dL (7-18); BUN CREA RATIO 19 (7.0-25.0); CALCIUM 9.2 mg/dL (8.5-10.1); CARBON DIOXIDE 29 mEq/L (21-32); CHLORIDE 110 mmol/L (98-107); CHOL HDL RATIO 3.2 (0-5.0); CHOLESTEROL 172 mg/dL (0-200); GFR 96.13; GLOBULINA 3.2 G/DL (2.4-3.5); GLUCOSE FASTING 103 mg/dL (65-100); HDL 54 mg/dl (40-60); LDL 87 mg/dl (0-130); OSMOLALITY SERUM 282 MOSM/KG (275-295); POTASSIUM 4.71 mEq/L (3.5-5.1); SODIUM 141 mmol/L (136-145); TOTAL PROTEIN 6.9 gm/dL (6.4-8.2); TRIGLYCERIDES 154 mg/dL (0-150); VLDL 30 (0-39)
[2024-06-05 08:37] LABS: PROSTATIC SPECIFIC ANTIGEN < 0.010 NG/ML (0.010-4.00)
== END 2024-06-05 06:46 | disposition home or self-care (01) ==
LOC: LAB 06:45
PROVIDERS: ATTEND Urology
DX: C61 Malignant neoplasm of prostate (principal); D63.8 Anemia in other chronic diseases classified elsewhere; I10 Essential (primary) hypertension; E11.9 Type 2 diabetes mellitus without complications; N18.9 Chronic kidney disease, unspecified; D64.9 Anemia, unspecified

== ENCOUNTER 2024-06-11 08:19 | Outpatient (CLI) | payer OTHER | END 2024-06-11 08:26 | disposition home or self-care (01) | LOC: MAMO-SONO 08:19 | PROVIDERS: ATTEND Specialist | DX: N63.0 Unspecified lump in unspecified breast (principal); N62 Hypertrophy of breast; Z12.31 Encounter for screening mammogram for malignant neoplasm of breast ==

== ENCOUNTER 2024-07-24 06:44 | Outpatient (CLI) | payer OTHER ==
[2024-07-24 07:40] LABS: URINE APPEARANCE Clear; URINE BILIRRUBIN Negative (NEGATIVE); URINE BLOOD Negative; URINE COLOR Yellow; URINE GLUCOSE Negative (NEGATIVE); URINE KETONE Negative (NEGATIVE); URINE LEUKOCYTE Negative; URINE NITRATE Negative; URINE PROTEIN Negative (NEGATIVE); URINE UROBILINOGEN 0.2 E.U./dl
[2024-07-24 07:41] LABS: URINE BACTERIA 252.9 uL (0.0-1933)
[2024-07-24 07:47] LABS: HEMATOCRIT 38.1 % (39.0-48.0); HEMOGLOBIN 13.2 g/dL (13-16.00); MEAN CELL VOLUME 112.9 fL (80.0-100.00); MEAN CORPUSCULAR HGB CONC 34.6 g/dl (32.0-36.0); PLATELET COUNT 198 K/uL (150-450); RED BLOOD COUNT 3.37 M/uL (4.00-6.00); RED CELL DISTRIBUTION WIDTH 13.3 % (11.5-14.5)
[2024-07-24 08:00] LABS: URINE EPITHELIAL CELLS 0.4 uL (0.0-38.8); URINE RBC 1.1 uL (0.0-20.8); URINE WBC 0.3 uL (0.0-23.2)
[2024-07-24 09:01] LABS: ALBUMIN 3.9 gm/dL (3.4-5.0); BILIRUBIN TOTAL 0.7 mg/dL (0.3-1.2); CALCIUM 9.7 mg/dL (8.5-10.1); CHOL HDL RATIO 3.2 (0-5.0); CREATININE SERUM 0.85 mg/dL (0.70-1.30); GFR 89.63; GLOBULINA 3.2 G/DL (2.4-3.5); POTASSIUM 4.23 mEq/L (3.5-5.1); TOTAL PROTEIN 7.1 gm/dL (6.4-8.2)
== END 2024-07-24 06:47 | disposition home or self-care (01) ==
LOC: LAB 06:44
DX: E78.1 Pure hyperglyceridemia (principal); E11.9 Type 2 diabetes mellitus without complications; B20 Human immunodeficiency virus [HIV] disease

== ENCOUNTER → 2024-09-10 06:47 | Outpatient (CLI) | payer OTHER ==
[2024-09-10 08:09] LABS: BASO % 0.8 % (0.1-1.2); EOS % 2.7 % (0.7-7.0); HEMATOCRIT 34.4 % (40.1-51.0); HEMOGLOBIN 12.2 g/dL (13.7-17.5); LYMPH # 2.08 (1.18-3.74); LYMPH % 56.1 % (19.3-53.1); MEAN CORPUSCULAR HEMOGLOBIN 37.3 pg (25.6-32.2); MONO % 10.8 % (4.7-12.5); NEUT # 1.09 (1.56-6.13); NEUT % 29.3 % (34.0-71.1); PLATELET COUNT 203 K/uL (163-369); RED BLOOD COUNT 3.27 M/uL (4.63-6.08); RED CELL DISTRIBUTION WIDTH 12.5 % (11.6-14.4)
[2024-09-10 09:03] LABS: ALBUMIN 3.7 gm/dL (3.4-5.0); BILIRUBIN TOTAL 0.46 mg/dL (0.3-1.2); CALCIUM 8.7 mg/dL (8.5-10.1); CHOL HDL RATIO 3.5 (0-5.0); CREATININE SERUM 0.77 mg/dL (0.70-1.30); GFR 100.47; GLOBULINA 2.9 G/DL (2.4-3.5); POTASSIUM 3.88 mEq/L (3.5-5.1); TOTAL PROTEIN 6.6 gm/dL (6.4-8.2)
[2024-09-10 11:26] LABS: FOLIC ACID 13.41 ng/ml (4.78-20)
== END | disposition home or self-care (01) ==
LOC: LAB 06:47
PROVIDERS: ATTEND Internal Medicine
DX: B20 Human immunodeficiency virus [HIV] disease (principal); D64.9 Anemia, unspecified; R10.9 Unspecified abdominal pain; E78.5 Hyperlipidemia, unspecified; R80.9 Proteinuria, unspecified; E11.9 Type 2 diabetes mellitus without complications

== ENCOUNTER 2024-10-15 07:03 | Emergency (ER) | payer OTHER ==
[~2024-10-15] VITALS: Ht 170.2 cm; Wt 56.2 kg
[2024-10-15] MEDS ORDERED: PREZISTA800 MG PO (07:29)
[2024-10-15] MEDS ORDERED: ZIDOVUDINE100 MG PO (07:30)
[2024-10-15] MEDS ORDERED: AVAPRO300 MG PO (07:30)
[2024-10-15] MEDS ORDERED: LIPOFEN150 MG PO (07:31)
[2024-10-15] MEDS ORDERED: EZALLOR SPRINKL40 MG PO (07:31)
[2024-10-15] MEDS ORDERED: OMEPRAZOLE-BIC1 EAC1 (07:32)
[2024-10-15] MEDS ORDERED: DULOXETINE HCL100 GM PO (07:33)
[2024-10-15 07:37] VITALS: BP 146/79; O2SAT 99
[2024-10-15] MEDS ORDERED: CEFTRIAXONE SODIUM 1,000 MG VIAL IM ONE (09:15)
[2024-10-15 09:34] LABS: BASO % 0.3 % (0.1-1.2); EOS # 0.03 (0.04-0.54); EOS % 0.3 % (0.7-7.0); LYMPH # 1.60 (1.18-3.74); LYMPH % 15.5 % (19.3-53.1); MEAN PLATELET VOLUME 8.80 fl (9.4-12.4); MONO # 0.86 (0.24-0.82); MONO % 8.3 % (4.7-12.5); NEUT # 7.73 (1.56-6.13); NEUT % 74.9 % (34.0-71.1); RED CELL DISTRIBUTION WIDTH 12.5 % (11.6-14.4)
[2024-10-15 09:39] LABS: ERYTHROCYTE SEDIMENTATION RATE 52 mm/hr (0-20)
[2024-10-15] MEDS ORDERED: CEPHALEXIN500 MG PO (12:11)
== END 2024-10-15 12:28 | disposition home or self-care (01) ==
LOC: ER 07:03
PROVIDERS: Preventive Medicine Public Health & General Preventive Medicine
DX: L03.312 Cellulitis of back [any part except buttock and flank] (principal); I10 Essential (primary) hypertension; B20 Human immunodeficiency virus [HIV] disease
CPT/HCPCS: 36415; 96372; 99283; J0696

== ENCOUNTER 2024-10-15 14:17 | Inpatient (IN) | payer OTHER ==
[~2024-10-15] VITALS: Ht 152.4 cm; Wt 56.2 kg
[~2024-10-15 14:17] MED LIST changes: +AVAPRO300 MG PO; +CEPHALEXIN500 MG PO; +DULOXETINE HCL100 GM PO; +EZALLOR SPRINKL40 MG PO; +LIPOFEN150 MG PO; +OMEPRAZOLE-BIC1 EAC1; +PREZISTA800 MG PO; +ZIDOVUDINE100 MG PO
--- NOTE | 2024-10-15 15:25 | NUR ---
SE RECIBE PTE ALERTA, ORIENTADO X3 Y AMBULANDO. PTE PRESENTA REFERIDO PARA ADMITIRLO POR DR. LITA HOOD. SE MIDEN S/V Y SE UBICA.
[2024-10-15] MEDS ORDERED: PIPERACILLIN/TAZOBACTAM SODIUM 3.375 GM VIAL IV ONE (16:30)
[2024-10-15] MEDS ORDERED: FAMOtidine 10 MG/ML (4ML VIAL) IV ONE (16:30)
--- NOTE | 2024-10-15 17:03 | NUR ---
MS MARMOLEJO ORIENTA PTE SOBRE TX MEDICO EL CUAL REFIERE ENTENDER,SE LE EXTRAEN MUESTRAS BAJO MEDIDAS ASEPTICAS,SE CANALIZA,SE ADMINISTRAN MEDICAMENTOS,SE NOTIFICA ESTUDIO PENDIENTE.
[2024-10-15 17:10] LABS: BASO % 0.1 % (0.1-1.2); EOS # 0.01 (0.04-0.54); EOS % 0.1 % (0.7-7.0); LYMPH # 1.26 (1.18-3.74); LYMPH % 13.4 % (19.3-53.1); MEAN PLATELET VOLUME 9.10 fl (9.4-12.4); MONO # 0.76 (0.24-0.82); MONO % 8.1 % (4.7-12.5); NEUT # 7.30 (1.56-6.13); NEUT % 77.9 % (34.0-71.1); RED CELL DISTRIBUTION WIDTH 12.6 % (11.6-14.4)
[2024-10-15 17:40] LABS: ALT/SGPT 25.0 U/L (12-78); AST/SGOT 35.0 U/L (15-37); BILIRUBIN TOTAL 0.78 mg/dL (0.3-1.2); BUN CREA RATIO 16.0 (7.0-25.0); CREATININE SERUM 0.94 mg/dL (0.70-1.30); GFR 79.81; GLOBULINA 4.1 G/DL (2.4-3.5); GLUCOSE FASTING 96.0 mg/dL (65-100); OSMOLALITY SERUM 280.0 MOSM/KG (275-295)
[2024-10-15 17:52] LABS: ERYTHROCYTE SEDIMENTATION RATE 50 mm/hr (0-20)
[2024-10-15 19:11] LABS: URINE APPEARANCE Clear; URINE BILIRRUBIN Negative (NEGATIVE); URINE BLOOD Negative; URINE COLOR Yellow; URINE GLUCOSE Negative (NEGATIVE); URINE KETONE Trace (NEGATIVE); URINE LEUKOCYTE Negative; URINE NITRATE Negative; URINE PROTEIN 30 (NEGATIVE); URINE UROBILINOGEN 1.0 E.U./dl
[2024-10-15 19:13] LABS: URINE BACTERIA 15.5 uL (0.0-1933); URINE EPITHELIAL CELLS 5.8 uL (0.0-38.8); URINE RBC 4.3 uL (0.0-20.8); URINE WBC 5.0 uL (0.0-23.2)
[2024-10-15 19:19] LABS: URINE CAST 0.58 uL (0.0-1.40)
[2024-10-15] MEDS ORDERED: CEFTRIAXONE SODIUM 2,000 MG in 0.9 % SODIUM CHLORIDE 100 ML IV SCH (19:45)
[2024-10-15] MEDS ORDERED: VANCOMYCIN HCL 1,000 MG VIAL IV SCH (19:45)
[2024-10-15] MEDS ORDERED: ACETAMINOPHEN 500 MG GEL..CAP PO PRN (19:45)
[2024-10-15] MEDS ORDERED: 0.9 % SODIUM CHLORIDE 1,000 ML IV SCH (19:45)
[2024-10-15] MEDS ORDERED: LOSARTAN POTASSIUM 50 MG TABLET PO SCH (19:46)
[2024-10-16] VITALS: BP 142/74; O2SAT 99
[2024-10-16 08:47] VITALS: BP 128/79; O2SAT 100
[2024-10-16] MEDS ORDERED: ATORVASTATIN CALCIUM 40 MG TABLET PO SCH (09:00)
[2024-10-16] MEDS ORDERED: ENOXAPARIN SODIUM 40 MG/0.4 ML SYRINGE SUBCUTANEO SCH (09:00)
[2024-10-16] MEDS ORDERED: FAMOTIDINE/PF 20 MG in 0.9 % SODIUM CHLORIDE 8 ML IV PUSH SCH (09:00)
[2024-10-16] MEDS ORDERED: TAMSULOSIN HCL 0.4 MG CAP PO SCH (09:00)
[2024-10-16] MEDS ORDERED: SODIUM HYPOCHLORITE 1OZ TOP SCH (10:57)
[2024-10-16 16:27] VITALS: BP 150/70; O2SAT 100
[2024-10-16 19:11] VITALS: BP 131/65; O2SAT 98
[2024-10-17 01:00] VITALS: BP 113/71
[2024-10-17 09:43] VITALS: BP 143/73; O2SAT 98
[2024-10-17] MEDS ORDERED: COMBIVIR PO SCH (17:00)
[2024-10-17] MEDS ORDERED: ZIDOVUDINE PO SCH (17:00)
[2024-10-17] MEDS ORDERED: ETRAVIRINE 200 MG PO SCH (17:00)
[2024-10-17] MEDS ORDERED: LAMIVUDINE PO SCH (17:00)
[2024-10-17] MEDS ORDERED: PRILOSEC 40 MG PO SCH (17:00)
[2024-10-17 18:18] VITALS: BP 124/71; O2SAT 97
[2024-10-18 01:30] VITALS: BP 134/69
[2024-10-18 08:00] VITALS: BP 137/72; O2SAT 95
[2024-10-18] MEDS ORDERED: DARUNAVIR 800 MG PO SCH (09:00)
[2024-10-18] MEDS ORDERED: CYANOCOBALAMIN (VITAMIN B-12) 1,000 MCG TABLET PO SCH (09:00)
[2024-10-18] MEDS ORDERED: ASCORBIC ACID 500 MG TABLET PO SCH (09:00)
[2024-10-18] MEDS ORDERED: FOLIC ACID 1 MG TABLET PO SCH (09:00)
[2024-10-18] MEDS ORDERED: FENOFIBRATE 145 MG PO SCH (09:00)
[2024-10-18] MEDS ORDERED: IRBESARTAN 300 MG TABLET PO SCH (09:00)
[2024-10-18] MEDS ORDERED: RITONAVIR 100 MG PO SCH (09:00)
[2024-10-18] MEDS ORDERED: ROSUVASTATIN CALCIUM 20 MG TABLET PO SCH (09:00)
[2024-10-18] MEDS ORDERED: ROSUVASTATIN CALCIUM 10 MG TABLET PO SCH (09:00)
[2024-10-18 16:46] VITALS: BP 150/69; O2SAT 97
[2024-10-18] MEDS ORDERED: VANCOMYCIN HCL 1,000 MG VIAL IV SCH (21:00)
[2024-10-19 03:28] VITALS: BP 151/56; O2SAT 94
[2024-10-19 10:17] VITALS: BP 152/77
[2024-10-19] MEDS ORDERED: LAMIVUDINE PO SCH (17:00)
[2024-10-19] MEDS ORDERED: ZIDOVUDINE PO SCH (17:00)
[2024-10-19] MEDS ORDERED: FUERA DE FORMULARIO 1 U FF PO SCH (17:00)
[2024-10-19 18:57] VITALS: BP 162/83
[2024-10-20 02:52] VITALS: BP 148/70; O2SAT 94
[2024-10-20 07:32] LABS: BASO % 0.5 % (0.1-1.2); EOS # 0.00 (0.04-0.54); EOS % 0.0 % (0.7-7.0); LYMPH # 1.14 (1.18-3.74); LYMPH % 17.2 % (19.3-53.1); MEAN PLATELET VOLUME 9.30 fl (9.4-12.4); MONO # 0.73 (0.24-0.82); MONO % 11.0 % (4.7-12.5); NEUT # 4.66 (1.56-6.13); NEUT % 70.4 % (34.0-71.1); RED CELL DISTRIBUTION WIDTH 12.6 % (11.6-14.4)
[2024-10-20 07:44] LABS: BUN CREA RATIO 11.0 (7.0-25.0); CREATININE SERUM 0.65 mg/dL (0.70-1.30); GFR 122.16; GLUCOSE FASTING 111.0 mg/dL (65-100); OSMOLALITY SERUM 284.0 MOSM/KG (275-295)
[2024-10-20 08:59] VITALS: BP 160/73
[2024-10-20] MEDS ORDERED: RITONAVIR 100 MG TABLET PO SCH (09:00)
[2024-10-20] MEDS ORDERED: DARUNAVIR ETHANOLATE 800 MG TABLET PO SCH (09:00)
[2024-10-20] MEDS ORDERED: MAGNESIUM SULFATE IN WATER 50 ML IV NR (16:00)
[2024-10-20] MEDS ORDERED: POTASSIUM CHLORIDE 10 MEQ CAPSULE PO NR (16:00)
[2024-10-20] MEDS ORDERED: POTASSIUM CHLORIDE IN WATER 100 ML IV SCH (17:00)
[2024-10-20 17:40] VITALS: BP 162/76
[2024-10-20] MEDS ORDERED: VANCOMYCIN HCL 5 MG/ML REDILUIDO IV SCH (21:00)
[2024-10-21 02:28] VITALS: BP 138/68
[2024-10-21 08:33] VITALS: BP 180/86
[2024-10-21] MEDS ORDERED: FLUCONAZOLE IN NACL,ISO-OSM 200 MG/100 ML PIGGYBAG IV NR (17:00)
[2024-10-21 17:58] VITALS: BP 135/60
[2024-10-21] MEDS ORDERED: MEROPENEM 500 MG/VIAL VIAL IV NR (18:00)
[2024-10-21 22:22] LABS: URINE APPEARANCE Clear; URINE BILIRRUBIN Negative (NEGATIVE); URINE BLOOD Small; URINE COLOR Yellow; URINE GLUCOSE Negative (NEGATIVE); URINE KETONE Negative (NEGATIVE); URINE LEUKOCYTE Negative; URINE NITRATE Negative; URINE UROBILINOGEN 1.0 E.U./dl
[2024-10-21 22:26] LABS: URINE BACTERIA 6.0 uL (0.0-1933); URINE EPITHELIAL CELLS 14.6 uL (0.0-38.8); URINE RBC 2.1 uL (0.0-20.8); URINE WBC 4.4 uL (0.0-23.2)
[2024-10-21 22:29] LABS: URINE CAST 0.29 uL (0.0-1.40); URINE PROTEIN 100 (NEGATIVE)
[2024-10-22] MEDS ORDERED: MEROPENEM 500 MG/VIAL VIAL IV SCH
[2024-10-22 02:10] VITALS: BP 133/76; O2SAT 88
[2024-10-22 05:45] LABS: BASO % 0.4 % (0.1-1.2); EOS # 0.03 (0.04-0.54); EOS % 0.5 % (0.7-7.0); LYMPH # 1.15 (1.18-3.74); LYMPH % 20.8 % (19.3-53.1); MEAN PLATELET VOLUME 9.20 fl (9.4-12.4); MONO # 0.16 (0.24-0.82); MONO % 2.9 % (4.7-12.5); NEUT # 4.15 (1.56-6.13); NEUT % 74.9 % (34.0-71.1); RED CELL DISTRIBUTION WIDTH 13.1 % (11.6-14.4)
[2024-10-22 06:44] LABS: ALT/SGPT 47.0 U/L (12-78); AST/SGOT 85.0 U/L (15-37); BILIRUBIN TOTAL 0.46 mg/dL (0.3-1.2); BUN CREA RATIO 15.0 (7.0-25.0); CREATININE SERUM 0.66 mg/dL (0.70-1.30); GFR 120.03; GLOBULINA 3.2 G/DL (2.4-3.5); GLUCOSE FASTING 94.0 mg/dL (65-100); OSMOLALITY SERUM 287.0 MOSM/KG (275-295)
[2024-10-22 07:49] VITALS: BP 164/80
[2024-10-22] MEDS ORDERED: FLUCONAZOLE IN NACL,ISO-OSM 200 MG/100 ML PIGGYBAG IV SCH (12:00)
[2024-10-22 19:06] VITALS: BP 168/90; O2SAT 97
[2024-10-23 01:28] VITALS: BP 163/81; O2SAT 93
[2024-10-23 09:32] VITALS: BP 161/79
[2024-10-23 17:51] VITALS: BP 155/85; O2SAT 98
[2024-10-24 02:14] VITALS: BP 166/78; O2SAT 97
[2024-10-24 10:34] VITALS: BP 175/88; O2SAT 96
[2024-10-24 17:04] VITALS: BP 157/81; O2SAT 97
[2024-10-25 02:09] VITALS: BP 164/90; O2SAT 95
[2024-10-25 09:07] VITALS: BP 179/75; O2SAT 99
[2024-10-25 17:36] VITALS: BP 104/74; O2SAT 98
[2024-10-25 17:41] VITALS: BP 168/84; O2SAT 97
[2024-10-26 02:37] VITALS: BP 174/84; O2SAT 90
[2024-10-26] MEDS ORDERED: PREZISTA800 MG PO (09:22)
[2024-10-26] MEDS ORDERED: CEPHALEXIN500 MG PO (09:22)
[2024-10-26 09:47] VITALS: BP 160/89
== END 2024-10-26 12:20 | disposition home or self-care (01) | DRG 603 ==
LOC: ER 14:17 → MEDJ 20:32 → SEC-K 20:32 → MEDJ 10-16 10:25
PROVIDERS: General Practice; Internal Medicine; Internal Medicine Infectious Disease; ADMIT Internal Medicine; ATTEND Internal Medicine
PROC: BW21ZZZ Computerized Tomography (CT Scan) of Abdomen and Pelvis (ICD-10-PCS; principal; 2024-10-15)
PROC: BR39YZZ Magnetic Resonance Imaging (MRI) of Lumbar Spine using Other Contrast (ICD-10-PCS; 2024-10-15)
DX: L03.116 Cellulitis of left lower limb (principal); L02.416 Cutaneous abscess of left lower limb; L89.159 Pressure ulcer of sacral region, unspecified stage; Z71.7 Human immunodeficiency virus [HIV] counseling; A49.02 Methicillin resistant Staphylococcus aureus infection, unspecified site; E78.5 Hyperlipidemia, unspecified; I10 Essential (primary) hypertension
CPT/HCPCS: 72149

== ENCOUNTER 2024-11-13 08:02 | Outpatient (CLI) | payer OTHER ==
[2024-11-13 09:06] LABS: URINE APPEARANCE Clear; URINE BILIRRUBIN Negative (NEGATIVE); URINE BLOOD Negative; URINE COLOR Yellow; URINE GLUCOSE Negative (NEGATIVE); URINE KETONE Negative (NEGATIVE); URINE LEUKOCYTE Negative; URINE NITRATE Negative; URINE PROTEIN Negative (NEGATIVE); URINE UROBILINOGEN 0.2 E.U./dl
[2024-11-13 09:09] LABS: URINE EPITHELIAL CELLS 2.1 uL (0.0-38.8)
[2024-11-13 09:18] LABS: URINE BACTERIA 2.3 uL (0.0-1933); URINE CAST 0.14 uL (0.0-1.40); URINE RBC 0.8 uL (0.0-20.8); URINE WBC 1.0 uL (0.0-23.2)
== END 2024-11-13 08:04 | disposition home or self-care (01) ==
LOC: LAB 08:02
PROVIDERS: ATTEND Urology
DX: C61 Malignant neoplasm of prostate (principal); N31.1 Reflex neuropathic bladder, not elsewhere classified

== ENCOUNTER 2024-12-02 07:11 | Outpatient (CLI) | payer OTHER ==
[2024-12-02 08:13] LABS: BASO % 1.0 % (0.1-1.2); EOS # 0.07 (0.04-0.54); EOS % 1.7 % (0.7-7.0); LYMPH # 2.27 (1.18-3.74); LYMPH % 54.0 % (19.3-53.1); MEAN PLATELET VOLUME 9.10 fl (9.4-12.4); MONO # 0.41 (0.24-0.82); MONO % 9.8 % (4.7-12.5); NEUT # 1.39 (1.56-6.13); NEUT % 33.0 % (34.0-71.1); RED CELL DISTRIBUTION WIDTH 13.2 % (11.6-14.4)
[2024-12-02 08:53] LABS: INR 1.06
[2024-12-02 10:01] LABS: BUN CREA RATIO 19.0 (7.0-25.0); CREATININE SERUM 0.75 mg/dL (0.70-1.30); GFR 103.56; GLUCOSE FASTING 89.0 mg/dL (65-100); OSMOLALITY SERUM 283.0 MOSM/KG (275-295)
[2024-12-02 10:02] LABS: ALT/SGPT 19.0 U/L (12-78); AST/SGOT 27.0 U/L (15-37); BILIRUBIN TOTAL 0.44 mg/dL (0.3-1.2); GLOBULINA 3.6 G/DL (2.4-3.5)
== END 2024-12-02 07:15 | disposition home or self-care (01) ==
LOC: LAB 07:11
DX: K20.80 Other esophagitis without bleeding (principal)

== ENCOUNTER 2025-03-05 06:37 | Outpatient (CLI) | payer OTHER ==
[2025-03-05 08:07] LABS: BASO % 0.8 % (0.1-1.2); EOS # 0.09 (0.04-0.54); EOS % 1.8 % (0.7-7.0); LYMPH # 2.14 (1.18-3.74); LYMPH % 42.5 % (19.3-53.1); MEAN PLATELET VOLUME 9.20 fl (9.4-12.4); MONO # 0.53 (0.24-0.82); MONO % 10.5 % (4.7-12.5); NEUT # 2.23 (1.56-6.13); NEUT % 44.2 % (34.0-71.1); RED CELL DISTRIBUTION WIDTH 14.8 % (11.6-14.4)
[2025-03-05 08:15] LABS: % SATURACION 11.8 % (20-50); ALT/SGPT 61.0 U/L (12-78); AST/SGOT 73.0 U/L (15-37); BILIRUBIN TOTAL 0.41 mg/dL (0.3-1.2); BUN CREA RATIO 14.0 (7.0-25.0); CHOL HDL RATIO 2.5 (0-5.0); CREATININE SERUM 0.83 mg/dL (0.70-1.30); FE 56.0 ug/dl (65-175); GFR 92.13; GLOBULINA 3.2 G/DL (2.4-3.5); GLUCOSE FASTING 102.0 mg/dL (65-100); HDL 61.0 mg/dl (40-60); LDL 62.0 mg/dl (0-130); OSMOLALITY SERUM 285.0 MOSM/KG (275-295); TSH 1.62 uIU/mL (0.358-3.74); VLDL 31.0 (0-39)
[2025-03-05 09:03] LABS: ob NEGATIVE (NEGATIVE)
[2025-03-06 10:41] LABS: FOLIC ACID > 20.00 ng/ml (4.78-20)
== END 2025-03-05 06:48 | disposition home or self-care (01) ==
LOC: LAB 06:37
PROVIDERS: ATTEND Internal Medicine
DX: D50.8 Other iron deficiency anemias (principal); D64.9 Anemia, unspecified; R10.9 Unspecified abdominal pain; E03.9 Hypothyroidism, unspecified; E78.5 Hyperlipidemia, unspecified; R80.9 Proteinuria, unspecified; E11.9 Type 2 diabetes mellitus without complications; B20 Human immunodeficiency virus [HIV] disease